=== PATIENT | male | born 1980 | race Caucasian/White ===

== ENCOUNTER 2019-06-26 04:31 | Emergency (ER) | payer SELFPAY ==
[~2019-06-26] VITALS: Ht 167.6 cm; Wt 136.4 kg
[2019-06-26 04:32] VITALS: Ht 167.6 cm; Wt 136.4 kg
[2019-06-26 04:42] VITALS: BP 144/78; PULSE 111; RESP 22
[2019-06-26] MEDS ORDERED: KETOROLAC 15 MG INJ IV STA (04:44)
[2019-06-26] MEDS ORDERED: FUROSEMIDE 40 MG INJ IV ONE (05:30)
== END 2019-06-26 06:05 | disposition home or self-care (01) ==
LOC: E/R 04:31
DX: I10 Essential (primary) hypertension (principal); R60.0 Localized edema; F11.29 Opioid dependence with unspecified opioid-induced disorder
CPT/HCPCS: 36415; 71045; 80053; 80307; 83690; 83880; 84484; 85025; 93005; 96374; 99285; J1885